=== PATIENT | male | born 1995 | race Caucasian/White ===

== ENCOUNTER 2017-11-18 19:56 | Emergency (ER) | payer OTHER ==
[~2017-11-18] VITALS: Ht 170.2 cm; Wt 52.5 kg
[~2017-11-18 19:56] MED LIST: ADDERALL20 MG PO; AMITRIPTYLINE H50 MG PO; ATARAX,VISTARIL50 MG PO; BENTYL20 MG PO; BRINTELLIX10 MG PO; BUPROPION HCL100 M1 PO; BUPROPION HCL150 M2 PO; CELEXA40 MG PO; CITALOPRAM HBR20 MG PO; CITALOPRAM HBR40 MG PO; CLONAZEPAM0.5 MG PO; FLEXERIL5 MG PO; GABAPENTIN100 MG PO; KLONOPIN1 MG PO; METHADONE10 MG PO; MOTRIN800 MG PO; NAPROSYN500 MG PO; PAXIL20 MG PO; PERCOCET 5/31 TABLET PO; TRAZODONE HCL50 MG PO; ULTRAM50 MG PO; VYVANSE30 MG; VYVANSE30 MG PO; VYVANSE40 MG PO; WELLBUTRIN XL300 MG PO; XANAX0.25 MG PO; XANAX1 MG PO; ZOFRAN ODT4 MG PO; ZOFRAN4 MG PO
[2017-11-18 21:56] LABS: HEMATOCRIT 39.9 % (38.0-50.0); HEMOGLOBIN 14.4 G/DL (12.5-16.6); MCH 32.1 PG (29.0-34.0); MCHC 36.1 G/DL (30.0-36.0); MCV 89.1 FL (86-99); PLATELET COUNT 235 K/uL (156-360); RBC DIS.WIDTH-CV 11.6 % (11.8-14.6); RBC DIS.WIDTH-SD 37.2 % (39-53); RED BLOOD COUNT 4.48 M/uL (4.00-5.50); WHITE BLOOD COUNT 6.2 K/uL (4.1-10.2)
[2017-11-18 22:04] LABS: ALBUMIN 4.3 g/dL (3.2-4.8); CHLORIDE 102 mEq/L (99-109); POTASSIUM 3.9 mEq/L (3.7-5.4); SODIUM 140 mEq/L (136-147)
[2017-11-18 22:07] LABS: GLUCOSE 83 mg/dL (70-99); TOTAL PROTEIN 6.7 g/dL (6.4-8.3)
[2017-11-18 22:09] LABS: TOTAL BILIRUBIN 0.7 mg/dL (0.0-1.0)
[2017-11-18 22:10] LABS: ALKALINE PHOSPHATASE 76 IU/L (3-129); SERUM ETHYL ALCOHOL < 10 mg/dL
[2017-11-18 22:11] LABS: CREATININE 0.8 mg/dL (0.6-1.3); GFR ESTIMATE (CALCULATED) > 59 mL/min/ (58.99-99999)
[2017-11-18 22:12] LABS: AST (GOT) 22 IU/L (2-34); UREA NITROGEN (BUN) 11 mg/dL (9-23)
[2017-11-18 22:13] LABS: ALT (GPT) 12 IU/L (3-49)
[2017-11-18 22:19] VITALS: BP 141/98
== END 2017-11-18 22:00 | disposition home or self-care (01) ==
LOC: EME 19:56
PROVIDERS: Emergency Medicine
DX: F19.10 Other psychoactive substance abuse, uncomplicated (principal); F41.9 Anxiety disorder, unspecified; F32.9 Major depressive disorder, single episode, unspecified; F11.20 Opioid dependence, uncomplicated; R45.851 Suicidal ideations; F90.9 Attention-deficit hyperactivity disorder, unspecified type; F17.200 Nicotine dependence, unspecified, uncomplicated
CPT/HCPCS: 80053; 85027; 90839; 99281; 99285; G0480

== ENCOUNTER 2017-12-13 14:06 | Inpatient (IN) | payer OTHER ==
[~2017-12-13] VITALS: Ht 167.6 cm; Wt 57.0 kg
[2017-12-13 14:58] LABS: BILIRUBIN NEGATIVE; BLOOD NEGATIVE; COLOR AMBER ((YELLOW)); GLUCOSE (STRIP) NEGATIVE; KETONES 20; LEUKOCYTES SMALL; NITRITE NEGATIVE; PROTEIN (STRIP) 30; SPECIFIC GRAVITY 1.031 (1.000-1.030)
[2017-12-13 15:02] LABS: APPEARANCE CLEAR ((CLEAR))
[2017-12-13 15:09] LABS: AMPHETAMINE PRESUMPTIVE POSITIVE (500 ng/mL); BARBITURATES NEGATIVE (200 ng/mL); BENZODIAZEPINES NEGATIVE (150 ng/mL); BUPRENORPHINE PRESUMPTIVE POSITIVE (10 ng/mL); COCAINE NEGATIVE (150 ng/mL); METHADONE NEGATIVE (200 ng/mL); METHAMPHETAMINE NEGATIVE (500 ng/mL); OPIATES (MORPHINE) NEGATIVE (100 ng/mL); OXYCODONE NEGATIVE (100 ng/mL); PHENCYCLIDINE NEGATIVE (25 ng/mL); PROPOXYPHENE NEGATIVE (300 ng/mL); THC CANNABINOIDS NEGATIVE (50 ng/mL); TRICYCLIC ANTIDEPRESSANTS NEGATIVE (300 ng/mL)
[2017-12-13 15:09] LABS: HEMATOCRIT 43.6 % (38.0-50.0); HEMOGLOBIN 16.2 G/DL (12.5-16.6); MCH 32.4 PG (29.0-34.0); MCHC 37.2 G/DL (30.0-36.0); MCV 87.2 FL (86-99); PLATELET COUNT 302 K/uL (156-360); RBC DIS.WIDTH-CV 11.1 % (11.8-14.6); RBC DIS.WIDTH-SD 35.7 % (39-53); WHITE BLOOD COUNT 6.1 K/uL (4.1-10.2)
[2017-12-13 15:15] LABS: BACTERIA NONE SEEN /HPF; CALCIUM OXALATE CRYSTALS 4+ /HPF; EPITHELIAL CELLS RARE /HPF; MUCUS TRACE /LPF; WHITE BLOOD CELLS 15-20 /HPF (0-5)
[2017-12-13 15:25] LABS: ALBUMIN 4.7 g/dL (3.2-4.8); CHLORIDE 102 mEq/L (99-109); POTASSIUM 4.2 mEq/L (3.7-5.4); SODIUM 139 mEq/L (136-147)
[2017-12-13 15:28] LABS: GLUCOSE 80 mg/dL (70-99); TOTAL PROTEIN 7.5 g/dL (6.4-8.3)
[2017-12-13 15:30] LABS: SERUM ETHYL ALCOHOL < 10 mg/dL
[2017-12-13 15:31] LABS: ALKALINE PHOSPHATASE 84 IU/L (3-129); CREATININE 0.8 mg/dL (0.6-1.3); GFR ESTIMATE (CALCULATED) > 59 mL/min/ (58.99-99999)
[2017-12-13 15:32] LABS: UREA NITROGEN (BUN) 19 mg/dL (9-23)
[2017-12-13 15:33] LABS: AST (GOT) 25 IU/L (2-34)
[2017-12-13 15:34] LABS: ALT (GPT) 14 IU/L (3-49)
[2017-12-13 19:24] VITALS: BP 135/82
[2017-12-14 07:39] VITALS: BP 123/59
[2017-12-14 15:20] VITALS: BP 120/59
[2017-12-15 07:16] VITALS: BP 110/61
[2017-12-15 15:46] VITALS: BP 131/69
[2017-12-16 07:22] VITALS: BP 132/78
[2017-12-16] MEDS ORDERED: HYDROXYZINE PAM50 MG PO ×2 (09:14→09:24)
[2017-12-16] MEDS ORDERED: TRAZODONE HCL50 MG PO (09:14)
== END 2017-12-16 13:42 | disposition home or self-care (01) | DRG 897 ==
LOC: EME 14:06 → 1WEST 16:07 → EDOF 16:07 → ENRESERV 19:02 → 1WEST 19:09
PROVIDERS: Emergency Medicine
DX: F11.20 Opioid dependence, uncomplicated (principal); F15.20 Other stimulant dependence, uncomplicated; F12.20 Cannabis dependence, uncomplicated; F43.21 Adjustment disorder with depressed mood; F41.9 Anxiety disorder, unspecified; G47.00 Insomnia, unspecified; F10.10 Alcohol abuse, uncomplicated; F14.90 Cocaine use, unspecified, uncomplicated; F90.9 Attention-deficit hyperactivity disorder, unspecified type; F17.200 Nicotine dependence, unspecified, uncomplicated; Z59.0 Homelessness; Z81.8 Family history of other mental and behavioral disorders
CPT/HCPCS: 80053; 81003; 84999; 85027; 87086; 90839; 99281; 99284; G0480; Q0177

== ENCOUNTER 2017-12-17 00:47 | Emergency (ER) | payer OTHER ==
[~2017-12-17] VITALS: Ht 172.7 cm; Wt 65.5 kg
[~2017-12-17 00:47] MED LIST changes: +HYDROXYZINE PAM50 MG PO
[2017-12-17 00:53] VITALS: BP 139/92
== END 2017-12-17 02:05 | disposition left against medical advice (07) ==
LOC: EME 00:47
DX: Z00.8 Encounter for other general examination (principal); Z53.21 Procedure and treatment not carried out due to patient leaving prior to being seen by health care provider
CPT/HCPCS: 80048; 85027; G0480